=== PATIENT | female | born 1980 | race Caucasian/White ===

== ENCOUNTER 2018-08-21 08:23 | Emergency (ER) | payer OTHER ==
[~2018-08-21 08:23] MED LIST: IBU600 PO
--- NOTE | 2018-08-21 08:25 | ER Report ---
History and Physical Time Seen By MD: 08:25 HPI/ROS CHIEF COMPLAINT: "Possible kidney stone" HISTORY OF PRESENT ILLNESS: Patient is a 37-year-old female who presents to the emergency department with complaint of severe left-sided flank pain that began around 5:30 this morning. Pain is colicky in nature and occasionally radiates to the left groin. It is associated with nausea and vomiting. No fevers or chills. Patient does have a prior history of stones in the kidney that had to be surgically removed but she is never "passed a stone". And have been persistent since 5 AM this morning. She rates her pain as 9 or 10 out of 10 in intensity. REVIEW OF SYSTEMS: Respiratory: No cough, no dyspnea. Cardiovascular: No chest pain, no palpitations. Gastrointestinal: Nausea, vomiting Musculoskeletal: No back pain. Left flank pain Allergies: Coded Allergies: No Known Drug Allergies (Unverified , 08/21/18) Home Meds Active Scripts Ondansetron Hcl (ZOFRAN) 4 Mg Tablet, 4 MG PO Q8H for Nausea, #15 TAB 0 Refills Prov:FRANK CASTRO MD 08/21/18 Tamsulosin Hcl (FLOMAX) 0.4 Mg Cap.er.24h, 0.4 MG PO QDAY for 4 Days, #4 CAP 0 Refills Prov:FRANK CASTRO MD 08/21/18 Oxycodone Hcl/Acetaminophen (PERCOCET 5-325 MG TABLET) 1 Each Tablet, 1-2 EACH PO Q6H for PAIN, #25 TAB 0 Refills No more than 6 tablets in a 24-hour period Prov:FRANK CASTRO MD 08/21/18 Reported Medications Ibuprofen (MOTRIN (OR EQUIV)) 600 Mg Tab, 600 MG PO Q6H PRN be sure to take with food to avoid stomach upset 12/07/12 Past Medical/Surgical History "Kidney stones" Hx Smoking: No Exposure to Second Hand Smoke?: No Constitutional Vital Sign - Last 24 Hours 08/21/18 08/21/18 08/21/18 08/21/18 08:29 08:32 08:53 09:00 Temp 97.6 Pulse 49 45 Resp 20 B/P (MAP) 133/87 133/87 (102) 142/85 (104) Pulse Ox 100 96 O2 Delivery Room Air 1108/21/18 08/21/18 08/21/18 09:05 09:30 09:53 10:00 Pulse 50 B/P (MAP) 117/81 (93) 120/73 (89) Pulse Ox 99 O2 Flow Rate 2.0 Physical Exam General Appearance: The patient is alert, has no immediate need for airway protection and no current signs of toxicity. Respiratory: Chest is non tender, lungs are clear to auscultation. Cardiac: regular rate and rhythm Gastrointestinal: Abdomen is soft and non tender, no masses, bowel sounds normal. Musculoskeletal: Neck: Neck is supple and non tender. Extremities have full range of motion and are non tender. Skin: No rashes or lesions. [ ] Medical Decision Making Data Points Result Diagram: 08/21/18 0850 08/21/18 0850 Laboratory Hematology Test 08/21/18 08:30 08/21/18 08:50 Urine Color Yellow Urine Clarity Cloudy Urine pH 8.0 pH (4.8-9.5) Urine Specific [place] 1.014 Urine Protein Negative mg/dL (NEGATIVE) Urine Glucose (UA) Negative mg/dL (NEGATIVE) Urine Ketones Trace mg/dL (NEGATIVE) Urine Blood Negative (NEGATIVE) Urine Nitrite Negative (NEGATIVE) Urine Bilirubin Negative (NEGATIVE) Urine Urobilinogen Negative mg/dL (0.2-1.9) Urine Leukocyte Esterase Negative (NEGATIVE) Urine RBC None /HPF (0-2/HPF) Urine WBC 2 /HPF (0-5/HPF) Urine Squamous Epithelial Cells Many /LPF (</=FEW) Urine Amorphous Crystals Few /HPF Urine Bacteria Few /HPF (NONE-FEW) Urine Mucus None /HPF (NONE-FEW) Urine HCG, Qualitative Negative (NEGATIVE) Red Blood Count 4.88 M/uL (4.17-5.56) Mean Corpuscular Volume 92.2 fL (80.0-96.0) Mean Corpuscular Hemoglobin 31.6 pg (26.0-33.0) Mean Corpuscular Hemoglobin Concent 34.3 g/dL (32.0-36.0) Red Cell Distribution Width 12.9 % (11.5-14.5) Mean Platelet Volume 8.9 fL (7.2-11.1) Neutrophils (%) (Auto) 80.2 % (39.4-72.5) Lymphocytes (%) (Auto) 13.4 % (17.6-49.6) Monocytes (%) (Auto) 5.4 % (4.1-12.4) Eosinophils (%) (Auto) 0.6 % (0.4-6.7) Basophils (%) (Auto) 0.4 % (0.3-1.4) Nucleated RBC Relative Count (auto) 0.0 /100WBC Neutrophils # (Auto) 5.6 K/uL (2.0-7.4) Lymphocytes # (Auto) 0.9 K/uL (1.3-3.6) Monocytes # (Auto) 0.4 K/uL (0.3-1.0) Eosinophils # (Auto) 0.0 K/uL (0.0-0.5) Basophils # (Auto) 0.0 K/uL (0.0-0.1) Nucleated RBC Absolute Count (auto) 0.00 K/uL Sodium Level 137 mmol/L (137-145) Potassium Level 3.4 mmol/L (3.5-5.0) Chloride Level 104 mmol/L (98-107) Carbon Dioxide Level 23 mmol/L (22-31) Blood Urea Nitrogen 11 mg/dl (7-18) Creatinine 0.70 mg/dl (0.52-1.04) Glomerular Filtration Rate Calc > 60.0 Random Glucose 123 mg/dl (75-110) Calcium Level 9.5 mg/dl (8.4-10.2) Total Bilirubin 0.9 mg/dl (0.2-1.3) Aspartate Amino Transf (AST/SGOT) 24 U/L (0-35) Alanine Aminotransferase (ALT/SGPT) 34 U/L (0-56) Alkaline Phosphatase 54 U/L (0-126) Total Protein 7.7 g/dl (6.3-8.2) Albumin 4.3 g/dl (3.5-5.0) Chemistry Test 08/21/18 08:30 08/21/18 08:50 Urine Color Yellow Urine Clarity Cloudy Urine pH 8.0 pH (4.8-9.5) Urine Specific [place] 1.014 Urine Protein Negative mg/dL (NEGATIVE) Urine Glucose (UA) Negative mg/dL (NEGATIVE) Urine Ketones Trace mg/dL (NEGATIVE) Urine Blood Negative (NEGATIVE) Urine Nitrite Negative (NEGATIVE) Urine Bilirubin Negative (NEGATIVE) Urine Urobilinogen Negative mg/dL (0.2-1.9) Urine Leukocyte Esterase Negative (NEGATIVE) Urine RBC None /HPF (0-2/HPF) Urine WBC 2 /HPF (0-5/HPF) Urine Squamous Epithelial Cells Many /LPF (</=FEW) Urine Amorphous Crystals Few /HPF Urine Bacteria Few /HPF (NONE-FEW) Urine Mucus None /HPF (NONE-FEW) Urine HCG, Qualitative Negative (NEGATIVE) White Blood Count 7.0 k/uL (4.5-11.0) Red Blood Count 4.88 M/uL (4.17-5.56) Hemoglobin 15.4 g/dL (12.0-16.0) Hematocrit 45.0 % (34.0-47.0) Mean Corpuscular Volume 92.2 fL (80.0-96.0) Mean Corpuscular Hemoglobin 31.6 pg (26.0-33.0) Mean Corpuscular Hemoglobin Concent 34.3 g/dL (32.0-36.0) Red Cell Distribution Width 12.9 % (11.5-14.5) Platelet Count 219 K/uL (150-450) Mean Platelet Volume 8.9 fL (7.2-11.1) Neutrophils (%) (Auto) 80.2 % (39.4-72.5) Lymphocytes (%) (Auto) 13.4 % (17.6-49.6) Monocytes (%) (Auto) 5.4 % (4.1-12.4) Eosinophils (%) (Auto) 0.6 % (0.4-6.7) Basophils (%) (Auto) 0.4 % (0.3-1.4) Nucleated RBC Relative Count (auto) 0.0 /100WBC Neutrophils # (Auto) 5.6 K/uL (2.0-7.4) Lymphocytes # (Auto) 0.9 K/uL (1.3-3.6) Monocytes # (Auto) 0.4 K/uL (0.3-1.0) Eosinophils # (Auto) 0.0 K/uL (0.0-0.5) Basophils # (Auto) 0.0 K/uL (0.0-0.1) Nucleated RBC Absolute Count (auto) 0.00 K/uL Glomerular Filtration Rate Calc > 60.0 Calcium Level 9.5 mg/dl (8.4-10.2) Total Bilirubin 0.9 mg/dl (0.2-1.3) Aspartate Amino Transf (AST/SGOT) 24 U/L (0-35) Alanine Aminotransferase (ALT/SGPT) 34 U/L (0-56) Alkaline Phosphatase 54 U/L (0-126) Total Protein 7.7 g/dl (6.3-8.2) Albumin 4.3 g/dl (3.5-5.0) Urinalysis Test 08/21/18 08:30 Urine Color Yellow Urine Clarity Cloudy Urine pH 8.0 pH (4.8-9.5) Urine Specific [place] 1.014 Urine Protein Negative mg/dL (NEGATIVE) Urine Glucose (UA) Negative mg/dL (NEGATIVE) Urine Ketones Trace mg/dL (NEGATIVE) Urine Blood Negative (NEGATIVE) Urine Nitrite Negative (NEGATIVE) Urine Bilirubin Negative (NEGATIVE) Urine Urobilinogen Negative mg/dL (0.2-1.9) Urine Leukocyte Esterase Negative (NEGATIVE) Urine RBC None /HPF (0-2/HPF) Urine WBC 2 /HPF (0-5/HPF) Urine Squamous Epithelial Cells Many /LPF (</=FEW) Urine Amorphous Crystals Few /HPF Urine Bacteria Few /HPF (NONE-FEW) Urine Mucus None /HPF (NONE-FEW) Urine HCG, Qualitative Negative (NEGATIVE) EKG/Imaging Imaging [place]AC[place] [facility] [place]IENT NAME: Gissell Alva : 1980 MR: [id number] V: [id number] EXAM DATE: ORDERING PHYSICIAN: FRANK CASTRO TECHNOLOGIST: Location: [facility] Patient: Gissell Alva : 1980 Visit/Account:[id number] Date of Sevice: 08/21/2018 CT abdomen and pelvis without IV contrast - Renal Stone Protocol History: Left-sided hydronephrosis COMPARISON STUDIES: none. TECHNIQUE: Axial CT images were obtained through the kidneys, ureters, and bladder without IV contrast. Reformatted coronal and sagittal images were also obtained. One of the following dose optimization techniques was utilized in the performance of this exam: Automated exposure control; adjustment of the mA and/or kV according to the patient's size; or use of an iterative reconstruction technique. Specific details can be referenced in the facility's radiology CT exam operational policy. FINDINGS: CT Abdomen and Pelvis- Chest bases: Negative Liver: Normal. Spleen: size is normal. Gallbladder and bile ducts: Gallbladder is present. Bile ducts are normal caliber. Pancreas: negative Adrenal glands: negative Right kidney and ureter: negative Left kidney and ureter: Severe hydronephrosis and hydroureter can be followed inferior to the UVJ where there is an oval 6 x 4 mm stone in the distal ureter. Peripelvic and periureteral fat stranding and haziness is observed. 3 nonob structing stones in the lower pole range in size from 3 mm to 5 mm. Renal parenchymal thickness is preserved. Pelvic structures: IUD. A fundal partially calcified intramural fibroid measures 2 cm. A few phleboliths in the low pelvis are nonobstructing. Bowel and mesenteries: negative Ascites: None Vessels: negative Musculoskeletal: Negative Body wall: negative Abd/Pelvis lymph node assessment: negative IMPRESSION: 1. Left severe hydronephrosis and hydroureter caused by a 6 x 4 mm stone in the distal ureter at the UVJ. 2. Left nonobstructing nephrolithiasis. Report Dictated By: Mona Tahyer MD at 08/21/2018 9:41 AM Report E-Signed By: Mona Thayer MD at 08/21/2018 9:53 AM WSN:[id number] ED Course/Re-evaluation ED Course 08/21/2018 8:48:05 am bedside ultrasound was performed which showed severe left-sided hydronephrosis and hydroureter. This would be consistent with a ureteral obstruction. Plan at this time will be noncontrast CT, we also check CBC and CMP. We will give IV Toradol, Zofran and Dilaudid for pain and nausea. Re-evaluation 08/21/2018 9:30:38 am symptoms improved after 15 of IV Toradol, 4 Zofran and 0.5 mg of Dilaudid. Awaiting official results of CT scan. Blood work is unremark able. 08/21/2018 10:03:14 am patient continues to be symptom free patient has a 6 x 4 mm UVJ stone on the left causing severe hydronephrosis. Patient's pain seems to be well-controlled at this time. We've agreed to a trial as an outpatient with pain medications as well as Flomax. Patient understands to return to the emergency department at any time if she develops fever or intractable pain or in tractable vomiting. Further to return to the emergency department if symptoms persist greater than 48-72 hours. No questions or concerns at time of disposition. Decision to Disposition Date: Aug 21, 2018 Decision to Disposition Time: 10:04 Depart Departure Latest Vital Signs Vital Signs Date Time Temp Pulse Resp B/P (MAP) Pulse Ox O2 Delivery O2 Flow Rate FiO2 08/21/18 10:00 120/73 (89) 08/21/18 09:53 50 99 08/21/18 09:05 2.0 08/21/18 08:29 97.6 20 Room Air Impression: Primary Impression: Kidney stone on left side Condition: Improved Disposition: HOME OR SELF-CARE Referrals: YESIKA REYES MD (PCP) ÓSCAR SILVESTRE MD call to schedule a routine outpatient appointment for follow up of kidney stones New Scripts Ondansetron Hcl (ZOFRAN) 4 Mg Tablet 4 MG PO Q8H for Nausea, #15 TAB 0 Refills Prov: FRANK CASTRO MD 08/21/18 Tamsulosin Hcl (FLOMAX) 0.4 Mg Cap.er.24h 0.4 MG PO QDAY for 4 Days, #4 CAP 0 Refills Prov: FRANK CASTRO MD 08/21/18 Oxycodone Hcl/Acetaminophen (PERCOCET 5-325 MG TABLET) 1 Each Tablet 1-2 EACH PO Q6H for PAIN, #25 TAB 0 Refills No more than 6 tablets in a 24-hour period Prov: FRANK CASTRO MD 08/21/18 Patient Instructions: Kidney Stones (ED) Additional Instructions: Return to the emergency department immediately if you developed fever at any time and or intractable pain or vomiting. Take your medications as prescribed Return to the emergency department in 48-72 hours if symptoms persist FRANK CASTRO MD Aug 21, 2018 08:25
[2018-08-21] MEDS ORDERED: ONDANSETRON 4 MG/2 ML VIAL IVP ONE (08:40)
[2018-08-21] MEDS ORDERED: HYDROMORPHONE HCL 1 MG/ML SYRINGE IVP ONE (08:40)
[2018-08-21] MEDS ORDERED: KETOROLAC 30 MG/ML VIAL IVP ONE (08:40)
[2018-08-21 09:05] LABS: PLATELET COUNT, AUTOMATED 219 K/uL (150-450)
--- NOTE | 2018-08-21 09:57 | RADIOLOGY IMAGING REPORT ---
FACILITY: [facility] - [place] PATIENT NAME: Gissell Alva : 1980 MR: [id number] V: [id number] EXAM DATE: ORDERING PHYSICIAN: FRANK CASTRO TECHNOLOGIST: Location: [facility] Patient: Gissell Alva : 1980 Visit/Account:[id number] Date of Sevice: 08/21/2018 CT abdomen and pelvis without IV contrast - Renal Stone Protocol History: Left-sided hydronephrosis COMPARISON STUDIES: none. TECHNIQUE: Axial CT images were obtained through the kidneys, ureters, and bladder without IV contr ast. Reformatted coronal and sagittal images were also obtained. One of the following dose optimization techniques was utilized in the performance of this exam: Autom ated exposure control; adjustment of the mA and/or kV according to the patient's size; or use of an i terative reconstruction technique. Specific details can be referenced in the facility's radiology C T exam operational policy. FINDINGS: CT Abdomen and Pelvis- Chest bases: Negative Liver: Normal. Spleen: size is normal. Gallbladder and bile ducts: Gallbladder is present. Bile ducts are normal caliber. Pancreas: negative Adrenal glands: negative Right kidney and ureter: negative Left kidney and ureter: Severe hydronephrosis and hydroureter can be followed inferior to the UVJ wh ere there is an oval 6 x 4 mm stone in the distal ureter. Peripelvic and periureteral fat stranding a nd haziness is observed. 3 nonobstructing stones in the lower pole range in size from 3 mm to 5 mm. R enal parenchymal thickness is preserved. Pelvic structures: IUD. A fundal partially calcified intramural fibroid measures 2 cm. A few phle boliths in the low pelvis are nonobstructing. Bowel and mesenteries: negative Ascites: None Vessels: negative Musculoskeletal: Negative Body wall: negative Abd/Pelvis lymph node assessment: negative IMPRESSION: 1. Left severe hydronephrosis and hydroureter caused by a 6 x 4 mm stone in the distal ureter at the UVJ. 2. Left nonobstructing nephrolithiasis. Report Dictated By: Mona Thayer MD at 08/21/2018 9:41 AM Report E-Signed By: Mona Thayer MD at 08/21/2018 9:53 AM WSN:[id number]
[2018-08-21 10:00] VITALS: BP 120/73
[2018-08-21] MEDS ORDERED: ONDA4TAB97 PO (10:05)
[2018-08-21] MEDS ORDERED: OXYC-865 PO (10:05)
[2018-08-21] MEDS ORDERED: TAMS0.4C25 PO (10:05)
== END 2018-08-21 10:24 | disposition home or self-care (01) ==
LOC: ER 08:48
DX: N20.0 Calculus of kidney (principal)
CPT/HCPCS: 74176; 81001; 81025; 85025; 96374; 96375; 99284; J1170; J1885; J2405; 82040; 82247; 82310; 82374; 82435; 82565; 82947; 84075; 84132; 84155; 84295; 84450; 84460; 84520

== ENCOUNTER → 2018-08-27 | Day surgery (SDC) | payer OTHER ==
--- NOTE | 2018-08-24 14:29 | HISTORY AND PHYSICAL ---
DATE OF ADMISSION: August 27, 2018 CHIEF COMPLAINT Kidney stones. HISTORY OF PRESENT ILLNESS Patient is a 37-year-old white female with a two-year history of kidney stones who presented to the Emergency Room on the 21 of August with left flank pain. CT scan revealed a 7 x 6 mm distal stone approximately 2 cm from the ureteral orifice with significant hydroureteronephrosis. She was also noted to have three left lower pole stones measuring 3, 7, and 8 mm in size. She was seen in the clinic on the afternoon of the with her films being discussed and reviewed. She was given approximately a 50-50 chance of passing this stone, but would still need treatment for the remaining kidney stones. She was given Flomax and pain medicine. Options of treatment were discussed including watching waiting, ureteroscopy, and/or ESWL. Given the distal location of her obstructing stone, this would likely be best treated by ureteroscopy, followed by renoureteroscopy and/or extracorporeal shock wave lithotripsy of the remaining stones. Stent placement was discussed given the significance and likelihood of ureteral edema following treatment and/or impaction of this current distal stone. She is now being brought to the operating room for planned anesthetic cystoscopy, left ureteroscopy stone treatment, followed by possible lithotripsy and/or renoureteroscopy. PAST MEDICAL HISTORY 1. depression. 2. Calcium oxalate kidney stones 2015. 3. Right proximal partial ureteral duplication. PAST SURGICAL HISTORY 1. Left arthroscopic knee surgery. 2. Left percutaneous nephrolithotomy with followup ESWL in spring for nine kidney stones on the left side measuring 5 to 16 mm in sizes. CURRENT MEDICATIONS 1. Zofran. 2. Flomax. 3. [place]. ALLERGIES No known drug allergies. SOCIAL HISTORY Patient is and lives in [place], [place]. FAMILY HISTORY Noncontributory. REVIEW OF SYSTEMS Patient denies chest pain, productive cough, fever, chills, bleeding disorder, liver disease, or chronic headaches. PHYSICAL EXAMINATION GENERAL: Patient is a well-developed, well-nourished, white female in no acute distress. HEENT: Normocephalic, atraumatic. CHEST: Clear to auscultation bilaterally. CARDIOVASCULAR: Regular rate and rhythm. ABDOMINAL: Soft, nontender. No masses are palpated. GENITOURINARY: Deferred to the OR. EXTREMITIES: Without clubbing, cyanosis, or edema. NEUROLOGIC: Nonfocal. IMPRESSION A 37-year-old white female with obstructing distal 7 x 8 mm stone in addition to having three stones in the left lower pole. PLAN We will perform anesthetic cystoscopy, followed by left ureteroscopy, stent placement, and possible treatment with the upper stones with ureteroscopy and/or ESWL. MTDD
[2018-08-24 16:19] LABS: INR 1.06
[2018-08-27] VITALS (7 sets, daily range): BP systolic 104–132; BP diastolic 56–90
[~2018-08-27] VITALS: Ht 182.9 cm; Wt 88.0 kg
[~2018-08-27] MED LIST changes: +APAP/HYDROCODONE 325/5 TAB PO PRN; +BELLADONNA ALK/OPIUM 60MG SUPP PR ONE; +DEXAMETHASONE SOD 4 MG/ML VIAL ONE; +DOCU-416 PO; +FAMOTIDINE 20 MG TAB PO ONE; +HYDR-653 PO; +IBUP600T22 PO; +IOPAMIDOL-200 50 ML VIAL IS ONE; +KETOROLAC 30 MG/ML VIAL ONE; +LIDOCAINE 2% IV 100 MG/5ML SYR ONE; +LIDOCAINE/SOD BICARB 8.4% SYR ID ONE; +MIDAZOLAM 2 MG/2 ML VIAL IVP PRN; +ONDA4TAB97 PO; +ONDANSETRON 4 MG/2 ML VIAL ONE; +OXYB10TA21 PO; +OXYC-865 PO; +PHEN200T32 PO; +PROPOFOL EMUL(*) 10MG/ML 20 ML 20 ML ONE; +PROPOFOL EMUL(*) 10MG/ML 20 ML 40 ML ONE; +SCOPOLAMINE 1.5 MG PATCH TD ONE; +TAMS0.4C25 PO; +ceFAZolin(*) 1 GM VIAL 1 GM in NS(*) 0.9% 100 ML ADDVANT BAG 100 ML IVPB ONE; +fentaNYL CITR 100 MCG/2 ML AMP ONE
[2018-08-27] MEDS: NORMOSOL R SOLN(*) 1000 ML BAG 1,000 ML IV PRN ×2 (09:59→16:21)
--- NOTE | 2018-08-27 14:39 | OPERATIVE REPORT 1 ---
EVENT DATE: August 27, 2018 SURGEON: Carlitos Tony MD ANESTHESIOLOGIST: Arsen Vasquez M.D. ANESTHESIA: General. PREOPERATIVE DIAGNOSES 1. Left distal ureteral calculus measuring 7 x 6 mm. 2. Left lower pole renal calculi x3 measuring 7, 6 and 3 mm. POSTOPERATIVE DIAGNOSES 1. Left distal ureteral calculus measuring 7 x 6 mm. 2. Left lower pole renal calculi x3 measuring 7, 6 and 3 mm. PROCEDURE PERFORMED 1. Cystoscopy. 2. Left semirigid ureteroscopy with Holmium laser fragmentation and grasping of fragments of left distal stone. 3. Left internal double J ureteral stent placement. 4. Left extracorporeal shock wave lithotripsy. ESTIMATED BLOOD LOSS 10 cc. IV FLUIDS Crystalloids. DRAINS 6-Moroccan x 26 cm Contour stent on left. COMPLICATIONS None. CONDITION Patient was taken to recovery room awake and in stable condition. STATEMENT OF MEDICAL NECESSITY Patient is a 37-year-old white female with a history of significant left renal stones approximately two years ago for which she underwent left percutaneous nephrolithotomy followed by lithotripsy and more recently presenting to the emergency room with left flank pain. CT scan revealed an obstructing distal stone on the left side approximately 2 to 3 cm above the ureteral orifice. The stone measured approximately 6 x 8 mm in size. In addition, she was noted to have lower pole fragments on the left side as well measuring 7, 6 and 3 mm. She has been followed conservatively over the past week and has not passed her stone. Preoperative KUB reveals no change in stone position. Options were discussed and she has elected to undergo left ureteroscopy followed by possible stent placement and lithotripsy of her renal stones. DESCRIPTION OF PROCEDURE The patient was brought to the cystoscopy suite, where she was placed on the cystoscopy table and general anesthetic was obtained. She was then placed in the dorsal lithotomy position and prepped and draped in the usual sterile manner. Anesthetic cystoscopy was performed with the 21-Moroccan rigid scope. She had a normal appearing urethra and bladder. She had slit-like ureteral orifices and both effluxing clear urine. The left ureteral orifice was cannulated with a 6-Moroccan opening Axxcess catheter and this was used to place the sensor double floppy wire up to the upper pole of calyx. The Axxces catheter was removed. This wire was used to place an 8/10 dilating system. The 8 sheath was removed and a second wire was placed alongside the first wire inside the 10 sheath. The 10 sheath was removed. One wire was secured to the drapes as safety wire and the next wire was backloaded into the [place] semirigid ureteroscopy. Ureteroscopy was performed over the wire under direct vision. Upon entering the ureter, it appeared normal. The stone was encountered approximately 5 cm above the ureteral orifice. It was yellowish garay in color with a mild irregular surface and ovoid in shape. At this point, the 357 [place]ium laser fiber was introduced into the working channel of the scope and was placed at dusting settings for a hard stone. In situ laser lithotripsy was performed under direct vision. Excellent fragmentation of the stone was obtained. It was dusted into multiple minute fragments. At the conclusion, there was one fragment approximately 2 mm. This was grasped with a Tricep grasping forceps and brought out into the bladder, where it was released. At this point, the ureteroscope was removed and the safety wire was backloaded into the cystoscope and this was used to place a 6-Moroccan x 26 cm Contour stent on the left side. Good curling in the renal pelvis was noted by fluoroscopy and good curling in the bladder was confirmed by visual inspection. The patient's bladder was drained through the cystoscopic sheath. She was next transferred from the cystoscopic table to the lithotripsy table and left lithotripsy was performed. First, she was placed supine with compression points padded. The stones in the lower pole were placed in the lithotripsy cross-hairs in two planes. Treatment was begun at a power setting of 3 with the first 300 shocks. A three minute pause was then performed and then treatment resumed up to a power setting of 7.5 over the course of the first 1500 shocks. At 2500 shocks, the power was increased to 8 for the remaining 500 shocks. The patient received a total of 3000 shocks to the left lower pole stones with excellent fragmentation results. At the conclusion of the procedure, no significant fragments could be identified. Intermittent two-plane fluoroscopy was used during the procedure to ensure the cross-hairs remained on the stone in total fragment pile. At the conclusion of the case, she was awakened in the operating room and taken to the recovery area in stable condition. PLAN We will allow the patient to be discharged home today on [place], Colace, Motrin, Pyridium, Ditropan XL and Flomax. We will plan to see her in the Urology Clinic in approximately two weeks to remove her stent. She is also given instructions to start the head-down protocol. CLAU
--- NOTE | 2018-08-27 14:41 | RADIOLOGY IMAGING REPORT ---
FACILITY: [facility] PATIENT NAME: Gissell Alva : 1980 MR: [id number] V: [id number] EXAM DATE: ORDERING PHYSICIAN: ÓSCAR SILVESTRE TECHNOLOGIST: Location: [facility] Patient: Gissell Alva : 1980 Visit/Account:[id number] Date of Sevice: 08/27/2018 KUB SINGLE VIEW ABDOMEN INDICATION: Preoperative COMPARISON: August 21, 2018 CT FINDINGS: Frontal radiograph obtained. No dilated bowel loops. Small to moderate volume colonic stool. An IU D projects over the lower pelvis. Two calculi project over the left mid to lower kidney the largest measuring 6 mm. A calcification projects over the left lateral lower pelvis measuring 8.5 mm craniocaudad a similar s ized calculus is seen in this area on the comparison CT scan within the distal left ureter. Normal osseous structures. Rim calcified uterine fibroid in the lower pelvis is noted. IMPRESSION: 8.5 mm calcification in the left lateral lower pelvis is concerning for a residual calculus in the le ft distal ureter given findings on comparison CT. Two left renal calculi the largest measuring 6 mm. Report Dictated By: Bang Menjivar MD at 08/27/2018 2:33 PM Report E-Signed By: Bang Menjivar MD at 08/27/2018 2:37 PM WSN:[id number]
[2018-08-27] MEDS: PROMETHAZINE 25 MG/ML 1 ML AMP ONE (16:10)
--- NOTE | 2018-08-28 04:20 | RADIOLOGY IMAGING REPORT ---
[place] [facility] [place] Gissell Alva : 1980 MR: [id number] V: [id number] EXAM DATE: ORDERING PHYSICIAN: ÓSCAR SILVESTRE TECHNOLOGIST: Location: [facility] Patient: Gissell Alva : 1980 Visit/Account:[id number] Date of Sevice: 08/27/2018 OR retrograde study: Indication: Left ureteral calculus. Technique: 14 images were submitted. Fluoroscopy time was 11 seconds. Comparison: CT scan dated 08/21/2018. Findings: The initial film demonstrates small calcifications overlying the left kidney and in the lef t hemipelvis, consistent with urinary tract calculi. An IUD is observed in the pelvic midline. Subseq uent images document placement of catheters and wires in the left ureter and kidney. The final image demonstrates a left ureteral stent. Refer to the operative report for full details. Impression: As above. Report Dictated By: Reymundo Majano MD at 08/28/2018 4:12 AM Report E-Signed By: Reymundo Majano MD at 08/28/2018 4:17 AM WSN:[id number]
== END ==
LOC: OR 00:46
PROVIDERS: ATTEND Urology
DX: N13.2 Hydronephrosis with renal and ureteral calculous obstruction (principal)
CPT/HCPCS: 50590; 52332; 74018; 76000; 81001; 81025; 85610; 87088; J0690; J1100; J1885; J2001; J2250; J2405; J2550; J2704; J3010; J7050; Q9966

== ENCOUNTER 2018-09-05 08:40 | Emergency (ER) | payer OTHER ==
[~2018-09-05 08:40] MED LIST changes: -APAP/HYDROCODONE 325/5 TAB PO PRN; -BELLADONNA ALK/OPIUM 60MG SUPP PR ONE; -DEXAMETHASONE SOD 4 MG/ML VIAL ONE; -FAMOTIDINE 20 MG TAB PO ONE; -IOPAMIDOL-200 50 ML VIAL IS ONE; -KETOROLAC 30 MG/ML VIAL ONE; -LIDOCAINE 2% IV 100 MG/5ML SYR ONE; -LIDOCAINE/SOD BICARB 8.4% SYR ID ONE; -MIDAZOLAM 2 MG/2 ML VIAL IVP PRN; -ONDANSETRON 4 MG/2 ML VIAL ONE; -PROPOFOL EMUL(*) 10MG/ML 20 ML 20 ML ONE; -PROPOFOL EMUL(*) 10MG/ML 20 ML 40 ML ONE; -SCOPOLAMINE 1.5 MG PATCH TD ONE; -ceFAZolin(*) 1 GM VIAL 1 GM in NS(*) 0.9% 100 ML ADDVANT BAG 100 ML IVPB ONE; -fentaNYL CITR 100 MCG/2 ML AMP ONE
[2018-09-05 09:14] LABS: PLATELET COUNT, AUTOMATED 225 K/uL (150-450)
--- NOTE | 2018-09-05 10:00 | ER Report ---
History and Physical Time Seen By MD: 09:00 Hx. of Stated Complaint: URINARY BURNING AND LOWER ABDOMINAL DISCOMFORT HPI/ROS CHIEF COMPLAINT: dysuria HISTORY OF PRESENT ILLNESS: pt is s/p stenting of l kidney/lithotripsy on 1 wk ago ; pain controlled but pt concerned because she is having dysuria with mild nausea, left flank pain, no fevers, no vomiting. Worse x 4 days. Pain mild- moderate. REVIEW OF SYSTEMS: Constitutional: chills Eyes: No discharge. ENT: No sore throat. Cardiovascular: No chest pain, no palpitations. Respiratory: No cough, no shortness of breath. Gastrointestinal: above Genitourinary: above Musculoskeletal: left flank Skin: No rashes. Neurological: No headache. Remainder of the 14 system rev: Yes Allergies: Coded Allergies: No Known Drug Allergies (Unverified , 08/21/18) Home Meds Active Scripts Ondansetron Hcl (ZOFRAN) 4 Mg Tablet, 4 MG PO Q8H for Nausea, #15 TAB 0 Refills Prov:FRANK CASTRO MD 08/21/18 Reported Medications Oxybutynin Chloride (DITROPAN XL) 10 Mg Tab.er.24, 10 MG PO QDAY PRN for BACK SPASM, #20 TAB 08/27/18 Tamsulosin Hcl (FLOMAX) 0.4 Mg Cap.er.24h, 0.4 MG PO DAILY, #20 CAP 08/27/18 Phenazopyridine Hcl (PHENAZOPYRIDINE HCL) 200 Mg Tablet, 200 MG PO TID, #30 TAB 08/27/18 Hydrocodone Bit/Acetaminophen (NORCO 5-325 TABLET) 1 Each Tablet, 1-2 EACH PO Q6H PRN for BREAKTHROUGH PAIN, #20 TAB 08/27/18 Ibuprofen (IBUPROFEN) 600 Mg Tablet, 1 TAB PO Q6H PRN for BREAKTHROUGH PAIN, #20 TAB 08/27/18 Docusate Sodium (COLACE) 100 Mg Capsule, 100 MG PO BID, #30 CAPSULE 08/27/18 Reviewed Nurses Notes: Yes Old Medical Records Reviewed: Yes Hx Smoking: No Smoking Status: Never Smoker Exposure to Second Hand Smoke?: No Hx Substance Use Disorder: No Hx Alcohol Use: Yes (occ) Constitutional Vital Sign - Last 24 Hours 09/05/18 09/05/18 08:46 12:19 Temp 97.6 Pulse 60 Resp 20 B/P (MAP) 164/101 135/93 (107) Pulse Ox 95 O2 Delivery Room Air Physical Exam General Appearance: The patient is alert, has no immediate need for airway protection and no signs of toxicity. Eyes: Pupils equal and round no pallor or injection. ENT, Mouth: Mucous membranes are moist. Respiratory: There are no retractions, lungs are clear to auscultation. Cardiovascular: Regular rate and rhythm. Gastrointestinal: Abdomen is soft and non tender, no masses, bowel sounds normal. Mild left CVAT Neurological: alert, oriented Skin: Warm and dry, no rashes. Musculoskeletal: Extremities are nontender, nonswollen and have full range of motion. DIFFERENTIAL DIAGNOSIS: After history and physical exam differential diagnosis was considered for uti/pyelo/impacted stone/renal failure/other etiology of symptoms Medical Decision Making Data Points Result Diagram: 09/05/1890609/05/18906 Laboratory Hematology Test 09/05/18 08:43 09/05/18 09:07 09/05/18 10:35 Urine Transitional Epithelial Cells Few /LPF (NONE-FEW) Red Blood Count 4.67 M/uL (4.17-5.56) Mean Corpuscular Volume 91.8 fL (80.0-96.0) Mean Corpuscular Hemoglobin 31.5 pg (26.0-33.0) Mean Corpuscular Hemoglobin Concent 34.3 g/dL (32.0-36.0) Red Cell Distribution Width 12.8 % (11.5-14.5) Mean Platelet Volume 8.4 fL (7.2-11.1) Neutrophils (%) (Auto) 71.3 % (39.4-72.5) Lymphocytes (%) (Auto) 17.8 % (17.6-49.6) Monocytes (%) (Auto) 7.2 % (4.1-12.4) Eosinophils (%) (Auto) 3.1 % (0.4-6.7) Basophils (%) (Auto) 0.6 % (0.3-1.4) Nucleated RBC Relative Count (auto) 0.0 /100WBC Neutrophils # (Auto) 4.4 K/uL (2.0-7.4) Lymphocytes # (Auto) 1.1 K/uL (1.3-3.6) Monocytes # (Auto) 0.4 K/uL (0.3-1.0) Eosinophils # (Auto) 0.2 K/uL (0.0-0.5) Basophils # (Auto) 0.0 K/uL (0.0-0.1) Nucleated RBC Absolute Count (auto) 0.00 K/uL Sodium Level 137 mmol/L (137-145) Potassium Level 3.9 mmol/L (3.5-5.0) Chloride Level 106 mmol/L (98-107) Carbon Dioxide Level 23 mmol/L (22-31) Blood Urea Nitrogen 13 mg/dl (7-18) Creatinine 0.60 mg/dl (0.52-1.04) Glomerular Filtration Rate Calc > 60.0 Random Glucose 104 mg/dl (75-110) Calcium Level 9.1 mg/dl (8.4-10.2) Urine Color Ioana Urine Clarity Clear Urine pH 6.0 pH (4.8-9.5) Urine Specific [place] 1.003 Urine Protein Negative mg/dL (NEGATIVE) Urine Glucose (UA) Negative mg/dL (NEGATIVE) Urine Ketones Negative mg/dL (NEGATIVE) Urine Blood Large (NEGATIVE) Urine Nitrite Positive (NEGATIVE) Urine Bilirubin Negative (NEGATIVE) Urine Urobilinogen 4.0 mg/dL (0.2-1.9) Urine Leukocyte Esterase Negative (NEGATIVE) Urine RBC 2 /HPF (0-2/HPF) Urine WBC 3 /HPF (0-5/HPF) Urine Squamous Epithelial Cells Moderate /LPF (NONE-FEW) Urine Bacteria Few /HPF (NONE-FEW) Urine Mucus None /HPF (NONE-FEW) Chemistry Test 09/05/18 08:43 09/05/18 09:07 09/05/18 10:35 Urine Transitional Epithelial Cells Few /LPF (NONE-FEW) White Blood Count 6.1 k/uL (4.5-11.0) Red Blood Count 4.67 M/uL (4.17-5.56) Hemoglobin 14.7 g/dL (12.0-16.0) Hematocrit 42.9 % (34.0-47.0) Mean Corpuscular Volume 91.8 fL (80.0-96.0) Mean Corpuscular Hemoglobin 31.5 pg (26.0-33.0) Mean Corpuscular Hemoglobin Concent 34.3 g/dL (32.0-36.0) Red Cell Distribution Width 12.8 % (11.5-14.5) Platelet Count 225 K/uL (150-450) Mean Platelet Volume 8.4 fL (7.2-11.1) Neutrophils (%) (Auto) 71.3 % (39.4-72.5) Lymphocytes (%) (Auto) 17.8 % (17.6-49.6) Monocytes (%) (Auto) 7.2 % (4.1-12.4) Eosinophils (%) (Auto) 3.1 % (0.4-6.7) Basophils (%) (Auto) 0.6 % (0.3-1.4) Nucleated RBC Relative Count (auto) 0.0 /100WBC Neutrophils # (Auto) 4.4 K/uL (2.0-7.4) Lymphocytes # (Auto) 1.1 K/uL (1.3-3.6) Monocytes # (Auto) 0.4 K/uL (0.3-1.0) Eosinophils # (Auto) 0.2 K/uL (0.0-0.5) Basophils # (Auto) 0.0 K/uL (0.0-0.1) Nucleated RBC Absolute Count (auto) 0.00 K/uL Glomerular Filtration Rate Calc > 60.0 Calcium Level 9.1 mg/dl (8.4-10.2) Urine Color Ioana Urine Clarity Clear Urine pH 6.0 pH (4.8-9.5) Urine Specific [place] 1.003 Urine Protein Negative mg/dL (NEGATIVE) Urine Glucose (UA) Negative mg/dL (NEGATIVE) Urine Ketones Negative mg/dL (NEGATIVE) Urine Blood Large (NEGATIVE) Urine Nitrite Positive (NEGATIVE) Urine Bilirubin Negative (NEGATIVE) Urine Urobilinogen 4.0 mg/dL (0.2-1.9) Urine Leukocyte Esterase Negative (NEGATIVE) Urine RBC 2 /HPF (0-2/HPF) Urine WBC 3 /HPF (0-5/HPF) Urine Squamous Epithelial Cells Moderate /LPF (NONE-FEW) Urine Bacteria Few /HPF (NONE-FEW) Urine Mucus None /HPF (NONE-FEW) Urinalysis Test 09/05/18 08:43 09/05/18 10:35 Urine Transitional Epithelial Cells Few /LPF (NONE-FEW) Urine Color Ioana Urine Clarity Clear Urine pH 6.0 pH (4.8-9.5) Urine Specific [place] 1.003 Urine Protein Negative mg/dL (NEGATIVE) Urine Glucose (UA) Negative mg/dL (NEGATIVE) Urine Ketones Negative mg/dL (NEGATIVE) Urine Blood Large (NEGATIVE) Urine Nitrite Positive (NEGATIVE) Urine Bilirubin Negative (NEGATIVE) Urine Urobilinogen 4.0 mg/dL (0.2-1.9) Urine Leukocyte Esterase Negative (NEGATIVE) Urine RBC 2 /HPF (0-2/HPF) Urine WBC 3 /HPF (0-5/HPF) Urine Squamous Epithelial Cells Moderate /LPF (NONE-FEW) Urine Bacteria Few /HPF (NONE-FEW) Urine Mucus None /HPF (NONE-FEW) ED Course/Re-evaluation ED Course Ms. Alva presents after second lithotripsy 1 wk ago; initially without concerning symptoms, but over past 2 days has had increasing discomfort/spasm. Evaluation is unremarkable for infection/stent displacement or increased hydro. After evaluation, I doubt emergent etiology. I did try to consult [facility] u[facility] but was not able to get ahold of urologist. At this time, pt is comfrtable going home with goal to arrange closer f/u. Of note, believe that nitrite + is caused by pyridium in light of lack of other markers of inflamma tion. Decision to Disposition Date: Sep 05, 2018 Decision to Disposition Time: 12:05 Depart Departure Latest Vital Signs Vital Signs Date Time Temp Pulse Resp B/P (MAP) Pulse Ox O2 Delivery O2 Flow Rate FiO2 09/05/18 12:19 135/93 (107) 09/05/18 08:46 97.6 60 20 95 Room Air Impression: Primary Impression: Dysuria Condition: Improved Disposition: HOME OR SELF-CARE Referrals: OCTAVIO BOYD MD (PCP) ÓSCAR TONY MD [address] Tony's office for closer follow up Additional Instructions: As we discussed, I do not see a clear cause of your symptoms. You do not appear to have a new infection. We will call you if I am able to arrange closer follow up. In the meantime, please return for any worsening symptoms or concerns. FRANK VIZCARRA MD Sep 05, 2018 09:59
--- NOTE | 2018-09-05 11:49 | RADIOLOGY IMAGING REPORT ---
FACILITY: [facility] - [place] PATIENT NAME: Gissell Alva : 1980 MR: [id number] V: [id number] EXAM DATE: ORDERING PHYSICIAN: FRANK VIZCARRA TECHNOLOGIST: [place] [facility] [place] Patient: Gissell lAva : 1980 Visit/Account:[id number] Date of Sevice: 09/05/2018 KIDNEYS EXAMINATION: Renal ultrasound. History: Stent/stone/lithotripsy one week ago, low abdomen pain COMPARISON STUDIES: CT abdomen pelvis August 21, 2018 FINDINGS: Kidneys: Right kidney- 14.6 x 3.6 x 4.9 cm. 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 Left kidney- 11.4 x 4.7 x 4.3 cm cm Uniform and symmetric blood flow in each kidney by Doppler ultrasound. Hydronephrosis: none There is urinary stent in the left kidney. Bladder: Prevoid volume 446 mL. Post void residual 24 mL. Bilateral ureteral jets are identified. Abdominal aorta and IVC: Aorta and IVC are patent by Doppler ultrasound. IMPRESSION: No evidence of hydronephrosis Left ureteral stent is in place. Bilateral ureteral jets are identified within the bladder Report Dictated By: Christina Bates MD at 09/05/2018 11:40 AM Report E-Signed By: Christina Bates MD at 09/05/2018 11:44 AM WSN:[email or web address]
[2018-09-05 12:19] VITALS: BP 135/93
== END 2018-09-05 17:19 | disposition home or self-care (01) ==
LOC: ER 08:57
DX: R30.0 Dysuria (principal)
CPT/HCPCS: 36415; 76705; 81001; 82310; 82374; 82435; 82565; 82947; 84132; 84295; 84520; 85025; 99284; A4353

== ENCOUNTER → 2018-10-05 | Outpatient (CLI) | payer OTHER ==
--- NOTE | 2018-10-05 11:43 | RADIOLOGY IMAGING REPORT ---
FACILITY: [facility] PATIENT NAME: Gissell Alva : 1980 MR: [id number] V: [id number] EXAM DATE: ORDERING PHYSICIAN: ÓSCAR SILVESTRE TECHNOLOGIST: Location: [facility] Patient: Gissell Alva : 1980 Visit/Account:[id number] Date of Sevice: 10/05/2018 EXAMINATION: CT abdomen without IV contrast CT pelvis without IV contrast HISTORY: Renal stones, follow-up postlithotripsy. COMPARISON: CT abdomen and pelvis from 08/21/2018. TECHNIQUE: Axial images were taken through the abdomen and pelvis without intravenous contrast. Sag ittal and coronal reformatted images are also submitted. One of the following dose optimization techniques was utilized in the performance of this exam: Autom ated exposure control; adjustment of the mA and/or kV according to the patient's size; or use of an i terative reconstruction technique. Specific details can be referenced in the facility's radiology C T exam operational policy. FINDINGS: Please note that without intravenous contrast, sensitivity to detection of parenchymal disease is anderson ited. Liver/biliary: Negative. Pancreas: Negative. Spleen: Negative. Adrenal glands: Negative. Kidneys: The 6 x 4 mm distal left ureteral stone has passed or been removed. There are no residual s tones in the left kidney. There is mild pelviectasis without residual hydronephrosis. No stones in the right kidney. Pelvic structures: Well-positioned IUD. 2 cm calcified uterine fibroid at the fundus is unchanged . Bowel: Bowel loops are normal in caliber. There is normal caliber, thin-walled retrocecal appendix. Peritoneum/retroperitoneum/mesenteries: Trace free fluid in the cul-de-sac. Vessels: Negative. Musculoskeletal/body wall: Negative. Lymph nodes: Negative. Lower chest: Negative. IMPRESSION: 1. Distal left ureteral stone has passed or been removed, and the left intrarenal stones have resolv ed following lithotripsy. 2. Mild left pelviectasis without residual hydronephrosis. Report Dictated By: Nafisa Rodriguez MD at 10/05/2018 11:27 AM Report E-Signed By: Nafisa Rodriguez MD at 10/05/2018 11:39 AM WSN:[email or web address]
== END ==
LOC: CT 01:29
PROVIDERS: ATTEND Urology
DX: N20.2 Calculus of kidney with calculus of ureter (principal)
CPT/HCPCS: 74176